=== PATIENT | female | born 1965 | race Caucasian/White ===

== ENCOUNTER 2016-08-18 23:49 | Emergency (ER) | payer OTHER ==
--- NOTE | 2016-08-19 02:04 | ED CLINICAL REPORT ---
Clinical Report - Physicians/Mid Levels [facility] [address] [place] [address] 08/18/2016 23:48 Patient: RORY GARCÍA Time Seen: 00:08. Arrived- By private vehicle. Historian- patient. HISTORY OF PRESENT ILLNESS Chief Complaint: VOMITING. This started yesterday and is still present. No recent travel. She has had nausea, vomiting, diarrhea and moderate, crampy abdominal pain. No black stools, bloody stools, constipation, flank pain or history of possible bad food exposure. No known contact with a sick individual or change in routine. Has not recently been camping or on antibiotics. The illness is described as moderate. Similar symptoms previously: Occasionally. Recent medical care: Not recently seen/assessed. REVIEW OF SYSTEMS No fever, muscle aches, difficulty with urination, dark urine or headache. No dizziness, sore throat, cough, chest pain or difficulty breathing. No excessive urination, skin rash, jaundice, back pain or fainting episodes. No blurred vision. All systems otherwise negative, except as recorded above. PAST HISTORY Problems: Depression. Additional Surgeries: Appendectomy. Hernia Repair. Knee Surgery. Wrist surgery . Medications: Citalopram Hydrobromide Oral. Allergies: Amoxicillin. Latex. Sulfa Antibiotics. Vicodin. SOCIAL HISTORY Never smoker. Alcohol use. History of drug use: marijuana. ADDITIONAL NOTES The nursing notes have been reviewed. PHYSICAL EXAM Vital Signs: 08/18/2016 23:53 BP: 160/86. HR: 62. RR: 18. O2 saturation: 98%. Temp: 98.2 F. Pain level now: 0/10. Appearance: Alert. Oriented X3. (Patient appears moderately uncomfortable.). Eyes: Pupils equal, round and reactive to light. Eyes normal inspection. ENT: Nose normal. Neck: Normal inspection. CVS: Normal heart rate and rhythm. Heart sounds normal. Pulses normal. Respiratory: No respiratory distress. Breath sounds normal. Abdomen: Soft. Mild tenderness diffusely. No guarding or rebound tenderness. Back: Normal inspection. No CVA tenderness. Skin: Skin warm and dry. Normal skin color. No rash. Normal skin turgor. Extremities: Extremities exhibit normal ROM. No lower extremity edema. Neuro: No motor deficit. No sensory deficit. (patient is grossly oriented.). LABS, X-RAYS, AND EKG Laboratory Tests: UA-Culture if indicated: (OMI: 08/19/2016 00:00) ( [facility] 08/19/2016 01:36) Final results Test Result Flag Units (Reference) URINE COLOR MANDIE URINE APPEARANCE CLEAR URINE GLUCOSE NEGATIVE (NEGATIVE) URINE BILIRUBIN ICTOTEST NEGATIVE (NEGATIVE) URINE KETONE 2+ (NEGATIVE) URINE SPECIFIC GRAVITY >= 1.030 (1.010-1.030) URINE PH 6.0 (5.0-8.0) URINE PROTEIN 2+ (NEGATIVE) URINE UROBILINOGEN 0.2 EU/dL (0.2-1.0) URINE NITRITE NEGATIVE (NEGATIVE) URINE BLOOD 1+ (NEGATIVE) URINE LEUK ESTERASE NEGATIVE (NEGATIVE) URINE RBC 0-1 rbc/hpf (0-1) URINE WBC 0-1 wbc/hpf (0-1) URINE EPITHELIAL CELLS 3-5 EPI/hpf (0-5) URINE BACTERIA MODERATE (2+ TO 3+) (NONE SEEN) URINE COMMENT CULTURE INDICATED FEW YEAST. 0-1 HYALINE CAST. 2+ MUCOUS.URINE CULTURES ARE SET-UP BASED ON THE FOLLOWING CRITERIA:POSITIVE NITRITEPOSITIVE LEUKOCYTE ESTERASEGREATER THAN 10 WHITE BLOOD CELLSMODERATE (2+) OR GREATER BACTERIA CBC w Diff: (OMI: 08/19/2016 00:02) ( [facility] 08/19/2016 00:59) Final results Test Result Flag Units (Reference) WHITE BLOOD COUNT 17.1 H K/uL (4.5-11.5) RED BLOOD COUNT 5.05 M/uL (4.00-5.20) HEMOGLOBIN 15.9 gm/dL (12.0-16.0) HEMATOCRIT 47.2 H % (36.0-46.0) MEAN CELL VOLUME 94 fL (80-100) MEAN CORPUSCULAR HGB 32 pg (26-34) MEAN CORPUSCULAR HGB CONC 34 g/dL (31-37) RED CELL DISTRIBUTION WIDTH 12.7 % (11.6-14.8) PLATELET COUNT 302 K/uL (150-400) NEUTROPHIL % 90.9 H % (50-75) LYMPH % 4.3 L % (25-40) MONO % 4.7 % (3-14) EOSINOPHIL % 0.1 % (0-4) BASOPHIL % 0 % (0-2) CMP: (OMI: 08/19/2016 00:02) ( MsgRcvd 08/19/2016 01:10) Final results Test Result Flag Units (Reference) GLUCOSE 177 H mg/dL (70-110) BUN 14 mg/dL (7-18) CREATININE 1.0 mg/dL (0.6-1.3) Estimated GFR >60 mL/min Estimated GFR- >60 mL/min Note: Persistent reduction over 3 months in eGFR<60 mL/min/1.73 m2 defines CKD. Patients with eGFR values>=60 mL/min/1.73 m2 may also have CKD if evidence ofpersistent proteinuria. Additional information may be foundat [email or web address].org. SODIUM 140 mmol/L (136-145) POTASSIUM 2.7 *L mmol/L (3.5-5.1) CRITICAL RESULTS CALLEDCalled to POWER JAMES RN 08/19/16 0108Were 2 patient identifiers used? YWas the result read back? Y CHLORIDE 98 mmol/L (98-107) CARBON DIOXIDE 29 mmol/L (21-32) CALCIUM 9.9 mg/dL (8.5-10.1) TOTAL PROTEIN 8.3 H g/dL (6.4-8.2) ALBUMIN 4.4 g/dL (3.3-5.0) BILIRUBIN, TOTAL 1.3 H mg/dL (0.0-1.0) ALKALINE PHOSPHATASE 115 U/L (46-116) AST (SGOT) 26 U/L (15-37) ALT (SGPT) 32 U/L (12-78) MAGNESIUM 1.9 mg/dL (1.8-2.4) LIPASE 173 U/L (73-393) . Pulse Oximetry: 08/18/2016 23:53 O2 saturation: 98%. (FIO2 - room air). Interpretation: normal. PROGRESS AND PROCEDURES Course of Care: patient is treated symptomatically with IV fluids and Zofran, after which she was found to be feeling better. She was worked up with urinalysis and labs, which were largely unremarkable, except for hypokalemia. Patient was given supplemental potassium in the emergency department. No emergent condition was identified. Patient counseled in person regarding the patient's stable condition, test results, diagnosis and need for follow-up. Concerns were addressed. Old medical records reviewed. Disposition: Discharged. Condition: stable and improved. CLINICAL IMPRESSION Acute viral gastroenteritis with volume depletion and hypokalemia. Hypokalemia INSTRUCTIONS Drink plenty of fluids. (Your tests all look good, other than your potassium being low.). Warnings: SEDATIVE MEDICATION: You were given sedative medication during your visit. Do not drive or operate dangerous machinery for 6 hours. GENERAL WARNINGS: Return or contact your physician immediately if your condition worsens or changes unexpectedly, if not improving as expected, or if other problems arise. Your Current Medications: CONTINUE TAKING THE FOLLOWING MEDICATIONS: Citalopram Hydrobromide Oral. Prescription Medications: Zofran (orally disintegrating tablets) 4 mg: take 1-2 orally every 6 hours as needed for nausea. Dispense twenty (20). No refill. Substitution is permissible. K-Dur 10 mEq: take 1 orally every 12 hours. Dispense fifteen (15). No refills. Substitution is permissible. Follow-up: Follow up with your doctor in five days if not better. Understanding of the discharge instructions verbalized by patient and family. (Electronically signed by Michelle Hunt MD 08/27/2016 10:31)
--- NOTE | 2016-08-19 02:04 | ED NURSING NOTES ---
Clinical Report - Nurses [facility] [address] [place] [address] 08/18/2016 23:48 Patient: RORY GARCÍA TRIAGE Triage time 23:53. Acuity: LEVEL 3. Chief Complaint: ABDOMINAL PAIN, NAUSEA, VOMITING and DIARRHEA. --23:58 TonyaB, R.N. 23:53 08/18/16. BP: 160/86. HR: 62. RR: 18. O2 saturation: 98%. Temp: 98.2 F. Pain level now: 0/10. --23:58 TonyaB, R.N. Weight: 58.9 kg. Height/Length: 63 inches. BMI: 23. --23:57 TonyaB, R.N. Medications Citalopram Hydrobromide Oral. --23:55 MagoB, R.N. Allergies Amoxicillin. Latex. Sulfa Antibiotics. Vicodin. --23:55 Kwasi, R.N. History Arrived by private vehicle. Historian: patient. Accompanied by family. ( pt complains of weakness with NVD). This started yesterday. She has had nausea, vomiting and diarrhea. Treatment [employer] WORKER: None. PAST MEDICAL HX: Immunizations: up-to-date. The patient is post-menopausal. SOCIAL HX: Never smoker. Occasional alcohol use. History of drug use: marijuana. Recently used drugs days ago. No recent travel. No infectious disease exposure. No known contact with a sick individual. SELF HARM ASSESSMENT: A self harm assessment was performed. The patient answered "no" to the question "Have you recently felt down, depressed, or hopeless?", "Have you noticed less interest or pleasure in doing things?", "Do you have thoughts of harming or killing yourself?", "Are you here because you tried to hurt yourself?", "Have you ever tried to hurt yourself before today?", "Have you recently had thoughts about harming or killing others?" and "Do you have any dangerous items in your possession?". FALL RISK ASSESSMENT: Fall risk assessment completed. No fall risk identified. NUTRITIONAL RISK ASSESSMENT: The nutritional risk assessment revealed no deficiencies. FUNCTIONAL ASSESSMENT: Functional assessment: no impairments noted. LEARNING NEEDS ASSESSMENT: The learning needs assessment revealed no barriers. ABUSE ASSESSMENT: Abuse assessment: The patient was asked "Do you feel safe in your home?". SKIN INTEGRITY ASSESSMENT: Skin integrity risk assessment completed. No skin integrity risk identified. --23:58 Kwasi R.N. PROBLEMS: Tendon Laceration. Laceration. --23:55 Kwasi R.N. Depression. --23:55 Kwasi, R.N. ADDITIONAL SURGERIES: Appendectomy. Hernia Repair. Knee Surgery. Wrist surgery . --23:55 Kwasi R.N. Interventions ID band on patient. To treatment room. --23:58 Kwasi R.N. PHYSICAL ASSESSMENT Ambulatory to room. GENERAL / NEURO / PSYCH: Alert. Oriented X 4. Appears in no acute distress. HEENT: Mucous membranes are pink. RESPIRATORY: Respirations not labored. Breath sounds within normal limits. CVS: Normal sinus rhythm noted. Capillary refill less than 2 seconds. GI / : The patient has had nausea. Emesis noted. Abdomen soft and nontender. Bowel sounds within normal limits. Stool color normal. SKIN: Skin is warm and dry. --23:59 Kwasi R.N. NURSING PROGRESS NOTES Patient gowned. Patient identifiers checked. Call light placed in reach. Side rails up x 1. Bed placed in lowest position. Brakes of bed on. --23:59 Kwasi R.N. 00:09 08/19/2016 Site #1 started via IV in the left antecubital space with an 20g angiocath; one attempt. Blood drawn: rainbow set. Labeled in the presence of the patient and sent to the lab. Saline lock flushed with 10 mL saline. --00:09 Kwasi R.N. 01:02 08/19/2016 Started bag #1 1000 mL IV Fluids IV NS (Saline); at 1000 mL/hr over 1 hour(s) via site #1 via dial-a-flow. Allergies verified and confirmed 5 rights. IV patency established. IV site checked: no pain, redness, or swelling. IV flushed thoroughly pre- and post-medication administration. --01:02 Tenzin Villalpando 01:03 08/19/2016 Zofran (Ondansetron HCl) IVP 8 mg given over 2 minute(s) via site #1. Allergies verified and confirmed 5 rights. IV patency established. IV site checked: no pain, redness, or swelling. IV flushed thoroughly pre- and post-medication administration. IVP given by RN. --01:03 Tenzin Villalpando Critical value relayed to ED by lab. Critical value received by mago. K: 2.7. Critical value read back. Verified lab result and patient ID. ED physician notifed of critical value. --01:10 Tenzin Villalpando 01:08/19/2016 Started 20 meq of KCL (Potassium Chloride) IVPB in bag #1 100 mL; at 50 mL/hr over 2 hour(s) via site #1 via IV pump. Allergies verified and confirmed 5 rights. IV patency established. IV site checked: no pain, redness, or swelling. IV flushed thoroughly pre- and post-medication administration. --01:20 Tenzin Villalpando 02:08/19/2016 IV Fluids IV NS Discontinued: bag #1 completed upon discharge. Total amount infused: 1000 mL. IV patency established. IV site checked: no pain, redness, or swelling. IV flushed thoroughly. --02:05 Tenzin Villalpando 02:06 08/19/2016 KCL IVPB Discontinued: discontinued upon discharge. Total amount infused: 50 mL. IV patency established. IV site checked: no pain, redness, or swelling. IV flushed thoroughly. --02:06 Tenzin Villalpando DISPOSITION / DISCHARGE 02:13 08/19/2016 Site #1 removed upon discharge. Catheter intact. Bandage applied. --02:13 Tenzin Villalpando Departure time: 02:13. Condition at departure: improved. No learning barriers present. Discharge instructions provided and reviewed with the patient. Reviewed medication(s) side effects, precautions, dosing and course information. Prescription(s) given to the patient. Patient verbalized understanding. Written instructions provided in Icelandic. No warning instructions, treatment instructions, referrals given to the patient, diet instructions or activity restrictions. No note given, follow up contact number given or stop smoking instructions. The patient was discharged by the physician. She was discharged home and accompanied by spouse. She left the Emergency Department ambulatory and via private vehicle. Spouse driving. FALL RISK ASSESSMENT: Fall risk assessment completed. No fall risk identified. --02:15 Tenzin Villalpando 02:12 08/19/16. BP: 138/72. HR: 62. RR: 16. O2 saturation: 98%. Temp: 98.8 F. Pain level now: 0/10. --02:15 Tenzin Villalpando Locked/Released at 08/19/2016 2:16 by Tenzin Villalpando
--- NOTE | 2016-08-19 02:05 | ED ORDER SUMMARY ---
..... Patient: RORY GARCÍA OrderSheet [facility] VisitID: [id number] [place] [address] 50y, F Registration Date/Time: 08/18/2016 ORDER SHEET Weight: 58.9 kg Allergies: Amoxicillin, Latex, Sulfa Antibiotics, Vicodin GENERAL ORDERS: CBC w Diff Urgent (00:51 08/19/2016 Rubi RIVAS) (Ack 0:52 AMcQuoid ER Tech1) (0:52 AMcQuoid ER Tech1) CMP Urgent (00:08/19/2016 Rubi RIVAS) (Ack 0:52 AMcQuoid ER Tech1) (0:52 AMcQuoid ER Tech1) Lipase Urgent (00:08/19/2016 Rubi RIVAS) (Ack 0:52 AMcQuoid ER Tech1) (0:52 AMcQuoid ER Tech1) UA-Culture if indicated Urgent (01:08/19/2016 Rubi RIVAS) (1:19 AMcQuoid ER Tech1) MEDICATION ORDERS: IV FLUIDS: IV NS : initial bolus 1000 mL (1000 mL/hr), then none - (NOW) (00:08/19/2016 Rubi RIVAS) (1:02 TBowen R.N.) Zofran IV 8 mg (NOW) (00:08/19/2016 Rubi RIVAS) (1:03 TBowen R.N.) KCl IV 10 mEq (Run no faster than 10 units/hr, HIGH ALERT MEDICATION, NOW) (01:08/19/2016 Rubi RIVAS) (Cancelled: Other1:13 Rubi RIVAS) KCl IV 20 meq/100mL (HIGH ALERT MEDICATION, NOW) (01:08/19/2016 Rubi RIVAS) (1:20 TBowen R.N.) ORDER SHEET NOTES: [Electronically signed by Mago Melgoza R.N. (02:08/19/2016)] [Electronically signed by Michelle Hunt MD (10:31 08/27/2016)] [Electronically locked/signed by Mago Melgoza R.N. (02:08/19/2016)]
--- NOTE | 2016-08-19 02:05 | ED ORDER SUMMARY ---
..... Patient: RORY GARCÍA OrderSheet [facility] VisitID: [id number] [place] [address] 50y, F Registration Date/Time: 08/18/2016 ORDER SHEET Weight: 58.9 kg Allergies: Amoxicillin, Latex, Sulfa Antibiotics, Vicodin GENERAL ORDERS: CBC w Diff Urgent (00:51 08/19/2016 Rubi RIVAS) (Ack 0:52 AMcQuoid ER Tech1) (0:52 AMcQuoid ER Tech1) CMP Urgent (00:08/19/2016 Rubi RIVAS) (Ack 0:52 AMcQuoid ER Tech1) (0:52 AMcQuoid ER Tech1) Lipase Urgent (00:08/19/2016 Rubi RIVAS) (Ack 0:52 AMcQuoid ER Tech1) (0:52 AMcQuoid ER Tech1) UA-Culture if indicated Urgent (01:08/19/2016 Rubi RIVAS) (1:19 AMcQuoid ER Tech1) MEDICATION ORDERS: IV FLUIDS: IV NS : initial bolus 1000 mL (1000 mL/hr), then none - (NOW) (00:08/19/2016 Rubi RIVAS) (1:02 TBowen R.N.) Zofran IV 8 mg (NOW) (00:08/19/2016 Rubi RIVAS) (1:03 TBowen R.N.) KCl IV 10 mEq (Run no faster than 10 units/hr, HIGH ALERT MEDICATION, NOW) (01:08/19/2016 Rubi RIVAS) (Cancelled: Other1:13 Rubi RIVAS) KCl IV 20 meq/100mL (HIGH ALERT MEDICATION, NOW) (01:08/19/2016 Rubi RIVAS) (1:20 TBowen R.N.) ORDER SHEET NOTES: [Electronically signed by Mago Melgoza R.N. (02:08/19/2016)] [Electronically signed by Michelle Hunt MD (10:31 08/27/2016)] [Electronically locked/signed by Mago Melgoza R.N. (02:08/19/2016)]
--- NOTE | 2016-08-27 10:32 | ED MED RECONCILIATION SUMMARY ---
Patient: RORY GARCÍA Medication Reconciliation Report [facility] VisitID: [id number] [address] [place] [address] 50y, F Registration Date/Time: 08/18/2016 Weight: 58.9 kg Height/Length: 63 in. BMI: 23.0 ALLERGIES: Amoxicillin, Latex, Sulfa Antibiotics, Vicodin The patient's Home Medications are listed below: CONTINUE TAKING THE FOLLOWING MEDICATIONS: Citalopram Hydrobromide Oral The source(s) of the original Home Medication information: Not obtained. The following Medications were given to the patient in the Emergency Department: IV NS IV Fluids bolus 0, then 1000 mL/hr, administered: 08/19/2016 1:02:00 AM Zofran [IVP] IVP 8 mg, administered: 08/19/2016 1:03:00 AM KCL [IVPB] IVPB bolus 0, then 20 meq 50 mL/hr, administered: 08/19/2016 1:05:00 AM The following Medications were prescribed to the patient: Zofran (orally disintegrating tablets) 4 mg: take 1-2 orally every 6 hours as needed for nausea. Dispense twenty (20). No refill. Substitution is permissible. -- Michelle Hunt MD K-Dur 10 mEq: take 1 orally every 12 hours. Dispense fifteen (15). No refills. Substitution is permissible. -- Michelle Hunt MD
--- NOTE | 2016-08-27 10:32 | ED MAR SUMMARY ---
..... Medication Administration Record [facility] [address] [place] [address] Patient: RORY GARCÍA Visit ID: [id number] 50y, F Weight: 58.9 kg Height/Length: 63 in BMI: 23 ALLERGIES: Amoxicillin, Latex, Sulfa Antibiotics, Vicodin Start 01:02 08/19/2016 Kwasi RAlec., Stop 02:08/19/2016 Aldo VillalpandoN. Medication Administered: IV NS (SALINE), Dose: IV Fluids over 1 hour(s), Rate: 1000 mL/hr, Dispensed: 1000 mL bag, Site: #1 left AC. Medication Ordered: IV NS : initial bolus 1000 mL (1000 mL/hr), then none - (NOW). Given 01:03 08/19/2016 Lul Villalpando. Medication Administered: ZOFRAN [IVP] (ONDANSETRON HCL), Dose: 8 mg IVP over 2 minute(s), Site: #1 left AC. Medication Ordered: Zofran IV 8 mg (NOW). Start 01:05 08/19/2016 Kwasi RDeenaN., Stop 02:06 08/19/2016 Aldo VillalpandoN. Medication Administered: KCL [IVPB] (POTASSIUM CHLORIDE), Dose: 20 meq IVPB over 2 hour(s), Rate: 50 mL/hr, Dispensed: 100 mL bag, Site: #1 left AC. Medication Ordered: KCl IV 20 meq/100mL (HIGH ALERT MEDICATION, NOW).
--- NOTE | 2016-08-27 10:32 | ED MAR SUMMARY ---
..... Medication Administration Record [facility] [address] [place] [address] Patient: RORY GARCÍA Visit ID: [id number] 50y, F Weight: 58.9 kg Height/Length: 63 in BMI: 23 ALLERGIES: Amoxicillin, Latex, Sulfa Antibiotics, Vicodin Start 01:02 08/19/2016 Kwasi RAlec., Stop 02:08/19/2016 Aldo VillalpandoN. Medication Administered: IV NS (SALINE), Dose: IV Fluids over 1 hour(s), Rate: 1000 mL/hr, Dispensed: 1000 mL bag, Site: #1 left AC. Medication Ordered: IV NS : initial bolus 1000 mL (1000 mL/hr), then none - (NOW). Given 01:03 08/19/2016 Lul Villalpando. Medication Administered: ZOFRAN [IVP] (ONDANSETRON HCL), Dose: 8 mg IVP over 2 minute(s), Site: #1 left AC. Medication Ordered: Zofran IV 8 mg (NOW). Start 01:05 08/19/2016 Kwasi RDeenaN., Stop 02:06 08/19/2016 Aldo VillalpandoN. Medication Administered: KCL [IVPB] (POTASSIUM CHLORIDE), Dose: 20 meq IVPB over 2 hour(s), Rate: 50 mL/hr, Dispensed: 100 mL bag, Site: #1 left AC. Medication Ordered: KCl IV 20 meq/100mL (HIGH ALERT MEDICATION, NOW).
--- NOTE | 2016-08-27 10:32 | ED MED RECONCILIATION SUMMARY ---
Patient: RORY GARCÍA Medication Reconciliation Report [facility] VisitID: [id number] [address] [place] [address] 50y, F Registration Date/Time: 08/18/2016 Weight: 58.9 kg Height/Length: 63 in. BMI: 23.0 ALLERGIES: Amoxicillin, Latex, Sulfa Antibiotics, Vicodin The patient's Home Medications are listed below: CONTINUE TAKING THE FOLLOWING MEDICATIONS: Citalopram Hydrobromide Oral The source(s) of the original Home Medication information: Not obtained. The following Medications were given to the patient in the Emergency Department: IV NS IV Fluids bolus 0, then 1000 mL/hr, administered: 08/19/2016 1:02:00 AM Zofran [IVP] IVP 8 mg, administered: 08/19/2016 1:03:00 AM KCL [IVPB] IVPB bolus 0, then 20 meq 50 mL/hr, administered: 08/19/2016 1:05:00 AM The following Medications were prescribed to the patient: Zofran (orally disintegrating tablets) 4 mg: take 1-2 orally every 6 hours as needed for nausea. Dispense twenty (20). No refill. Substitution is permissible. -- Michelle Hunt MD K-Dur 10 mEq: take 1 orally every 12 hours. Dispense fifteen (15). No refills. Substitution is permissible. -- Michelle Hunt MD
--- NOTE | 2016-08-27 10:32 | ED DISCHARGE INSTRUCTIONS ---
Patient: RORY GARCÍA General Instructions [facility] VisitID: [id number] [place] [address] 50y, F Registration Date/Time: 08/18/2016 Acute viral gastroenteritis with volume depletion and hypokalemia. Hypokalemia INSTRUCTIONS Drink plenty of fluids. (Your tests all look good, other than your potassium being low.). Warnings: SEDATIVE MEDICATION: You were given sedative medication during your visit. Do not drive or operate dangerous machinery for 6 hours. GENERAL WARNINGS: Return or contact your physician immediately if your condition worsens or changes unexpectedly, if not improving as expected, or if other problems arise. Your Current Medications: CONTINUE TAKING THE FOLLOWING MEDICATIONS: Citalopram Hydrobromide Oral. Prescription Medications: Zofran (orally disintegrating tablets) 4 mg: take 1-2 orally every 6 hours as needed for nausea. Dispense twenty (20). No refill. Substitution is permissible. K-Dur 10 mEq: take 1 orally every 12 hours. Dispense fifteen (15). No refills. Substitution is permissible. Follow-up: Follow up with your doctor in five days if not better. Understanding of the discharge instructions verbalized by patient and family. ADDITIONAL INFORMATION Viral Gastroenteritis (6Yr-Adult) Gastroenteritis is another name for thestomach flu.It is most often caused by a virus that affects the stomach and intestinal tract. Symptoms include stomach cramping and fever, vomiting and/or diarrhea, and can last from 2 to 7 days. The danger from repeated vomiting or diarrhea is dehydration. This is the loss of too much water and minerals from the body. When this occurs, body fluids must be replaced. Antibiotics are not effective for this illness, but simple home treatment will be helpful. Home Care If symptoms are severe, rest at home for the next 24 hours. Avoid tobacco, caffeine, and alcohol use, which can worsen symptoms. Acetaminophen (Tylenol) or ibuprofen (Motrin, Advil) may be usedfor fever or pain unless another medication was prescribed. NOTE: If you have chronic liver or kidney disease or ever had a stomach ulcer or GI bleeding, talk with your doctor before using these medicines. Aspirin should never be used in anyone under 18 years of age who is ill with a fever. It may cause severe liver damage. If medicines for diarrhea or vomiting were prescribed, be sure they are takenonly as directed. If vomiting, drink small amounts of clear fluids (such as water, sports drinks, clear sodas) at frequent intervals to prevent dehydration. Start with 1 to 2 tablespoons every 10 minutes. Once vomiting stops, follow these guidelines: During The First 12 To 24 Hours follow the diet below: Beverages: Sport drinks like Gatorade, soft drinks without caffeine; nai layton, mineral water (plain or flavored), decaffeinated tea and coffee. Soups: Clear broth, consomm and bouillon Desserts: Plain gelatin (Jell-O), Popsicles and fruit juice bars. During The Next 24 Hours you may add the following to the above: Hot cereal, plain toast, bread, rolls, crackers Plain noodles, rice, mashed potatoes, chicken noodle or rice soup Unsweetened canned fruit (avoid pineapple), bananas Limit fat intake to less than 15 grams per day by avoiding margarine, butter, oils, mayonnaise, sauces, gravies, fried foods, peanut butter, meat, poultry, and fish. Limit fiber; avoid raw or cooked vegetables, fresh fruits (except bananas), and bran cereals. Limit caffeine and chocolate. Do not use spices or seasonings except salt. During The Next 24 Hours The patient can gradually resume a normal diet as symptoms lessen. Preventing Spread Hand washing with soap and water is the best way to prevent the spread of viruses. Caregivers should wash their hands before andafter touching the sick person. The sick person, as well as everyone in the family,should wash their hands after using the toilet and before meals. Clean the toilet after each use. People with diarrhea should not prepare food for others. If you are preparing your own foods, wash your hands before and after. Follow Up with your doctor as advised. Call your doctor if you are not improving over the next 2 to 3 days. If a stool (diarrhea) sample was taken, you may call in 2 days (or as directed) for the results. Get Prompt Medical Attention if any of the following occur: Increasing abdominal pain Continued vomiting (unable to keep liquids down) Frequent diarrhea (more than 5 times a day) Blood in vomit or stool (black or red color) Dark urine, reduced urine output, or extreme thirst Weakness, dizziness, fainting Drowsiness, confusion, stiff neck, or seizure Fever of 100.4F (38C) oral or higher, not better with fever medication New rash Hypokalemia Hypokalemia means a low level of potassium in the blood. This most often occurs in patients who take diuretics (water pills). It can also occur due to severe vomiting or diarrhea. A mild case usually causes no symptoms. It is only found with blood testing. More severe potassium loss causes generalized weakness, muscle or abdominal cramping, heart palpitations (rapid or irregular heartbeats) and low blood pressure. Home Care: 1) Take any potassium supplements prescribed. 2) Eat foods rich in potassium. The highest amount is found in artichoke, baked potatoes, spinach, cantaloupe, honeydew melon, cod, halibut, salmon, and scallops. White, red, or selby beans are also very good sources. A modest amount is found in orange juice, bananas, carrots, and tomato juice. 3) Certain types of diuretics (water pills), such as Lasix (furosemide), require that you take potassium supplements for as long as you take the diuretic pills. If you are taking a diuretic, discuss the need for potassium supplements with your doctor. Follow Up with your doctor for a repeat blood test within the next week or as advised by our staff. Get Prompt Medical Attention if any of the following occur: -- Increased weakness -- Feeling dizzy -- Irregular heartbeat, extra beats or very fast heart rate -- Fainting spell You have been given the following additional information: Gastroenteritis, Viral (6Y-Adult) Hypokalemia (Electronically signed by Michelle Hunt MD 08/27/2016 10:31)
== END 2016-08-19 02:13 | disposition home or self-care (01) ==
LOC: ED SRH 23:49
DX: A08.4 Viral intestinal infection, unspecified (principal); E87.6 Hypokalemia; E86.9 Volume depletion, unspecified; F12.10 Cannabis abuse, uncomplicated; Z88.2 Allergy status to sulfonamides; Z88.1 Allergy status to other antibiotic agents
CPT/HCPCS: 90004; 90100; 90469; 92235; 92720; 95059

== ENCOUNTER 2016-08-19 18:08 | Emergency (ER) | payer OTHER ==
--- NOTE | 2016-08-19 20:14 | DIAGNOSTIC IMAGING REPORT ---
PROCEDURE: CT ABD/PELVIS WITH CONTRAST CLINICAL INDICATION: Abdominal pain with nausea and vomiting x3 days. TECHNIQUE: 125 ml of Isovue 300 were injected intravenously and axial images were obtained of the entire abdomen and pelvis with sagittal and coronal reformations. COMPARISON: None. FINDINGS: ABDOMEN: Lung bases are clear. Normal heart size. Liver, gallbladder, pancreas, spleen, adrenal glands and kidneys are normal. Minor atherosclerosis of the aorta. Small hiatal hernia. Nonspecific bowel gas pattern. PELVIS: History of appendectomy. Mild sigmoid diverticulosis. Uterus, adnexa and bladder are normal. No pelvic mass, inflammatory changes or free fluid. Mild degenerative changes of the spine. IMPRESSION: 1. Small hiatal hernia 2. Mild sigmoid diverticulosis 3. Appendectomy 4. Results discussed with WILLY Garcia All CT scans at this facility use dose modulation, iterative reconstruction, and/or weight-based dosing when appropriate to reduce radiation dose to as low as reasonably achievable.
--- NOTE | 2016-08-19 22:42 | ED CLINICAL REPORT ---
Clinical Report - Physicians/Mid Levels [facility] [address] [place] [address] 08/19/2016 18:11 Patient: RORY GARCÍA Time Seen: 18:35 Aug 19 2016. Arrived- By private vehicle. Historian- patient. HISTORY OF PRESENT ILLNESS Chief Complaint: ABDOMINAL PAIN. This started 3 days [employer] and is still present. It is described as "pain" and it is described as located in the upper abdomen. The patient has had loss of appetite, vomiting and diarrhea. (Patient reports abdominal pain nausea vomiting and diarrhea over the last 3 days. Reports epigastric pain. Patient reports taking small sips unable to tolerate such, however pain epigastrically when she does. Patient was seen in the emergency department yesterday, went home and had improvement of symptoms, this morning had nausea, and then started worsening with nausea and vomiting epigastric pain. Able tolerate some by mouth small sips. She denies any melena. Denies hematochezia. Denies fevers. Denies shortness of breath or cough.). REVIEW OF SYSTEMS No constipation, black stools, difficulty with urination, urinary frequency or fever. No headache or sore throat. All systems otherwise negative, except as recorded above. PAST HISTORY Problems: Hiatal Hernia. Gastroenteritis. Depression. Tendon Laceration. Laceration. Additional Surgeries: Appendectomy. Hernia Repair. Knee Surgery. Wrist surgery . Medications: Potassium Oral. Zofran Oral. Citalopram Hydrobromide Oral. Allergies: Amoxicillin. Latex. Sulfa Antibiotics. Vicodin. SOCIAL HISTORY Never smoker. Alcohol use. History of drug use. ADDITIONAL NOTES The nursing notes have been reviewed. PHYSICAL EXAM Vital Signs: 08/19/2016 19:59 BP: 170/79. HR: 62. RR: 19. O2 saturation: 95%. Pain level now: 07/05. 08/19/2016 19:34 BP: 175/75. HR: 55. RR: 20. O2 saturation: 99%. Pain level now: 07/05. 08/19/2016 19:00 HR: 55. RR: 21. O2 saturation: 97%. 08/19/2016 18:27 BP: 124/67. HR: 56. RR: 22. O2 saturation: 98%. Temp: 98 F. Pain level now: 12/05. Appearance: Anxious. Appears to be in pain. Patient in mild distress. Eyes: Eyes normal inspection. ENT: Ears normal. Nose normal. Neck: Normal inspection. No lymphadenopathy or thyromegaly. CVS: Normal heart rate and rhythm. Heart sounds normal. Respiratory: No respiratory distress. Breath sounds normal. No decreased air movement. Abdomen: Soft. Mild tenderness in the epigastric area. Back: Normal inspection. No CVA tenderness. Skin: Skin warm. Normal skin color. Neuro: Oriented X 3. LABS, X-RAYS, AND EKG EKG: EKG time: (1846). No acute process. No acute ischemia. Rate: 63. Prolonged QT. The study has been interpreted contemporaneously. The study has been independently viewed by me. The EKG appears to be a good tracing. I agree with and confirm the computer reading of the EKG. Abdominal CT: IMPRESSION: 1. Small hiatal hernia 2. Mild sigmoid diverticulosis 3. Appendectomy 4. Results discussed with Helga Forbes, WILLY All CT scans at this facility use dose modulation, iterative reconstruction, and/or weight-based dosing when appropriate to reduce radiation dose to as low as reasonably achievable. Electronically Final signed by:Harry Fuchs MD 08/19/2016 8:14:06 PM. Laboratory Tests: UA-Culture if indicated: (OMI: 08/19/2016 18:25) ( MsgRcvd 08/19/2016 18:53) Final results Test Result Flag Units (Reference) URINE COLOR YELLOW URINE APPEARANCE CLEAR URINE GLUCOSE NEGATIVE (NEGATIVE) URINE BILIRUBIN NEGATIVE (NEGATIVE) URINE KETONE 3+ (NEGATIVE) URINE SPECIFIC GRAVITY 1.025 (1.010-1.030) URINE PH 6.0 (5.0-8.0) URINE PROTEIN 1+ (NEGATIVE) URINE UROBILINOGEN 1.0 EU/dL (0.2-1.0) URINE NITRITE NEGATIVE (NEGATIVE) URINE BLOOD TRACE-INTACT (NEGATIVE) URINE LEUK ESTERASE NEGATIVE (NEGATIVE) URINE RBC 0-1 rbc/hpf (0-1) URINE WBC 0-1 wbc/hpf (0-1) URINE EPITHELIAL CELLS 0-1 EPI/hpf (0-5) URINE BACTERIA TRACE (<1+) (NONE SEEN) 2+ MUCOUS URINE COMMENT CULT NOT INDICATED URINE CULTURES ARE SET-UP BASED ON THE FOLLOWING CRITERIA:POSITIVE NITRITEPOSITIVE LEUKOCYTE ESTERASEGREATER THAN 10 WHITE BLOOD CELLSMODERATE (2+) OR GREATER BACTERIA CBC w Diff: (OMI: 08/19/2016 18:35) ( [facility] 08/19/2016 18:43) Final results Test Result Flag Units (Reference) WHITE BLOOD COUNT 13.3 H K/uL (4.5-11.5) RED BLOOD COUNT 5.01 M/uL (4.00-5.20) HEMOGLOBIN 15.9 gm/dL (12.0-16.0) HEMATOCRIT 47.0 H % (36.0-46.0) MEAN CELL VOLUME 94 fL (80-100) MEAN CORPUSCULAR HGB 32 pg (26-34) MEAN CORPUSCULAR HGB CONC 34 g/dL (31-37) RED CELL DISTRIBUTION WIDTH 12.6 % (11.6-14.8) PLATELET COUNT 299 K/uL (150-400) NEUTROPHIL % 89.4 H % (50-75) LYMPH % 6.7 L % (25-40) MONO % 3.7 % (3-14) EOSINOPHIL % 0.2 % (0-4) BASOPHIL % 0 % (0-2) Troponin-I: (OMI: 08/19/2016 18:35) ( [facility] 08/19/2016 19:21) Final results Test Result Flag Units (Reference) TROPONIN I 0.06 ng/mL (0.00-1.5) TROPONIN REFERENCE RANGE:<0.1 NEGATIVE0.1-1.5 INDETERMINANT>1.5 POSITIVE CMP: (OMI: 08/19/2016 18:35) ( [facility] 08/19/2016 19:20) Final results Test Result Flag Units (Reference) GLUCOSE 144 H mg/dL (70-110) BUN 14 mg/dL (7-18) CREATININE 0.9 mg/dL (0.6-1.3) Estimated GFR >60 mL/min Estimated GFR- >60 mL/min Note: Persistent reduction over 3 months in eGFR<60 mL/min/1.73 m2 defines CKD. Patients with eGFR values>=60 mL/min/1.73 m2 may also have CKD if evidence ofpersistent proteinuria. Additional information may be foundat [email or web address].org. SODIUM 139 mmol/L (136-145) POTASSIUM 2.8 *L mmol/L (3.5-5.1) CRITICAL RESULTS CALLEDCalled to Rufina FELIX 08/19/169Were 2 patient identifiers used? YWas the result read back? Y CHLORIDE 99 mmol/L (98-107) CARBON DIOXIDE 23 mmol/L (21-32) CALCIUM 9.2 mg/dL (8.5-10.1) TOTAL PROTEIN 7.7 g/dL (6.4-8.2) ALBUMIN 4.0 g/dL (3.3-5.0) BILIRUBIN, TOTAL 1.8 H mg/dL (0.0-1.0) ALKALINE PHOSPHATASE 108 U/L (46-116) AST (SGOT) 21 U/L (15-37) ALT (SGPT) 31 U/L (12-78) MAGNESIUM 1.9 mg/dL (1.8-2.4) LIPASE 253 U/L (73-393) . PROGRESS AND PROCEDURES Course of Care: Patient with emesis diarrhea and abdominal pain, paresthesias over the last 3 days. Patient was recently seen in the emergency department yesterday. She still has hypokalemia, somewhat improved from yesterday although minimal, was given 20 mEq IV today. Patient received 2 L of fluid bolus in addition. Dehydration with likely viral gastroenteritis, comp became to by hypokalemia. Patient with a negative CT abdomen. No signs of acute surgical pathology. No signs of infectious process requiring antibiotic. 08/19/2016 22:48 BP: 173/75. HR: 72. RR: 14. O2 saturation: 96%. Pain level now: 07/05. 08/19/2016 22:25 BP: 151/91. HR: 68. RR: 13. O2 saturation: 96%. Pain level now: 07/05. 08/19/2016 22:09 BP: 178/92. HR: 64. RR: 16. O2 saturation: 96%. Pain level now: 07/05. 08/19/2016 21:15 BP: 174/79. HR: 60. RR: 19. O2 saturation: 88%. FLACC pain scale: 0/10. Patient is stable. Symptoms much better and better. Differential Diagnosis: I considered gastritis, acute appendicitis, diverticulitis, small bowel obstruction, adhesions, biliary colic, cholecystitis, hepatitis, pancreatitis, splenic injury, splenic rupture, intraabdominal abscess, urinary tract infection, cystitis, ovarian cyst, pelvic inflammatory disease, pelvic abscess, abdominal aortic aneurysm, myocardial infarction, pneumonia, diabetic ketoacidosis and medications as a possible cause of abdominal pain in this patient. This is a partial list of diagnoses considered. Differential diagnosis was discussed with patient and patient's spouse. Disposition: Discharged. CLINICAL IMPRESSION Vomiting. Diarrhea Acute abdominal pain of unknown cause. Hypertension. Hypokalemia Hiatal Hernia. INSTRUCTIONS Drink plenty of fluids. Drink plenty of fluids. (take your zofran as well as the Potassium). Warnings: Further evaluation is necessary. Prescription Medications: Phenergan take 1 as needed for nausea or vomiting. Dispense ten (10). No refill. Substitution is permissible Reglan 10 mg tablets: take 1 orally every 8 hours for 3 days as needed for nausea or vomiting. Dispense ten (10). No refills. Substitution is permissible. Follow-up: Follow up with your doctor in two days. (Electronically signed by May Forbes P.A.-C 08/19/2016 23:13)
--- NOTE | 2016-08-19 22:42 | ED ORDER SUMMARY ---
..... Patient: RORY GARCÍA OrderSheet [facility] VisitID: [id number] [place] [address] 50y, F Registration Date/Time: 08/19/2016 ORDER SHEET Weight: 61.2 kg (stated) Allergies: Amoxicillin, Latex, Sulfa Antibiotics, Vicodin GENERAL ORDERS: CBC w Diff Urgent (18:27 08/19/2016 EKoroleva P.A.-C) (Ack 18:29 KHoerner) (18:44 MCook R.N.) CMP Urgent (18:27 08/19/2016 EKoroleva P.A.-C) (Ack 18:29 KHoerner) (18:44 MCook R.N.) UA-Culture if indicated Urgent (18:27 08/19/2016 EKoroleva P.A.-C) (Ack 18:29 KHoerner) (18:44 MCook R.N.) Lipase Urgent (18:27 08/19/2016 EKoroleva P.A.-C) (Ack 18:29 KHoerner) (18:44 MCook R.N.) EKG - ER Stat (18:36 08/19/2016 EKoroleva P.A.-C) (18:44 MCook R.N.) Troponin-I Urgent (18:36 08/19/2016 EKoroleva P.A.-C) (Ack 18:38 KHoerner) (18:44 MCook R.N.) CT Abd/Pel w Cont (No) (see lab) Urgent (19:28 08/19/2016 EKoroleva P.A.-C) (Ack 19:31 AMcQuoid ER Tech1) (19:55 MCampbell) Vitals (20:43 08/19/2016 EKoroleva P.A.-C) (21:03 RMarsden R.N.) Vitals (R. arm bp) (22:17 08/19/2016 EKoroleva P.A.-C) (22:26 RMarsden R.N.) MEDICATION ORDERS: Phenergan IV 12.5 mg (HIGH ALERT MEDICATION, NOW) (18:40 08/19/2016 EKoroleva P.A.-C) (18:51 MCook R.N.) Phenergan IV 12.5 mg (HIGH ALERT MEDICATION) (20:56 08/19/2016 EKoroleva P.A.-C) (Ack 21:03 RMarsden R.N.) (21:16 RMarsden R.N.) IV FLUIDS: IV NS : initial bolus 1000 mL (1000 mL/hr), then 1000 mL/hr for X1 (NOW); Kieran (18:27 08/19/2016 EKoroleva P.A.-C) (18:45 MCook R.N.) Reglan IV 10 mg (NOW) (18:27 08/19/2016 EKoroleva P.A.-C) (18:45 MCook R.N.) Protonix IVP 40mg 40 mg (Mix in NS 10ml over 2min) (18:36 08/19/2016 EKoroleva P.A.-C) (18:48 MCook R.N.) KCl IV 20 meq/100mL (Run no faster than 10 units/hr) (19:01 08/19/2016 EKoroleva P.A.-C) (Ack 19:04 RMarsden R.N.) (19:15 MCook R.N.) IV NS with Normal Saline 1 Liter: initial bolus 150 mL (1000 mL/hr), then 150 mL/hr for X1 (NOW) (20:22 08/19/2016 RMarsden R.N. per protocol) (Ack 20:23 RMarsden R.N.) (Cancelled: Other20:24 RMarsden R.N.) Zofran IV 8 mg (NOW) (20:56 08/19/2016 EKoroleva P.A.-C) (Ack 21:03 RMarsden R.N.) (21:20 RMarsden R.N.) Reglan IV 10 mg (NOW) (22:28 08/19/2016 EKoroleva P.A.-C) (Ack 22:34 RMarsden R.N.) (22:38 RMarsden R.N.) ORDER SHEET NOTES: [Electronically signed by May Forbes P.A.-C (23:13 08/19/2016)] [Electronically signed by Caro Gonzalez R.N. (:15 08/20/2016)] [Electronically locked/signed by Caro Gonzalez R.N. (:15 08/20/2016)]
--- NOTE | 2016-08-19 22:42 | ED NURSING NOTES ---
Clinical Report - Nurses [facility] [address] [place] [address] 08/19/2016 18:11 Patient: RORY GARCÍA TRIAGE Triage time 18:Aug 19 2016. Acuity: LEVEL 3. Chief Complaint: ABDOMINAL PAIN, NAUSEA and VOMITING. Alert. SEPSIS SCREEN: Sepsis Screen. Negative (no infection suspected/documented). --18:38 Alex Berkowitz R.N. 18:27 08/19/16. BP: 124/67. HR: 56. RR: 22. O2 saturation: 98% on room air. Temp: 98 F. Pain level now: 12/05. --18:38 Alex Berkowitz R.N. Weight: 61.2 kg stated. Height/Length: 63 inches Per Patient. BMI: 23.9. --18:27 Alex Berkowitz R.N. Medications Citalopram Hydrobromide Oral. --18:28 Alex Berkowitz R.N. Zofran Oral. --18:29 Alex Berkowitz R.N. Potassium Oral. --18:29 Alex Berkowitz R.N. Allergies Amoxicillin. Latex. Sulfa Antibiotics. Vicodin. --18:28 Alex Berkowitz R.N. History Arrived by private vehicle. Historian: patient and family. Accompanied by family. Onset. (3 days ago). ( Pt was here in ED last night for nausea and vomiting for the past 3 days. She returns today for N/V and abdominal pain, reports she "feels ill" and just "wants to get out of my skin." C/O numbness in hands as well. Pt was given Zofran ODT last evening as an Rx but Pt never took it.). No fever. PAST MEDICAL HX: Immunizations: up-to-date. SOCIAL HX: Never smoker. Occasional alcohol use. History of occasional drug use: marijuana. No recent travel. No infectious disease exposure. No known contact with a sick individual. FALL RISK ASSESSMENT: Fall risk assessment completed. No fall risk identified. FUNCTIONAL ASSESSMENT: Functional assessment: no impairments noted. LEARNING NEEDS ASSESSMENT: The learning needs assessment revealed no barriers. NUTRITIONAL RISK ASSESSMENT: The patient has recently had decreased intake and recurrent vomiting several times. SKIN INTEGRITY ASSESSMENT: Skin integrity risk assessment completed. No skin integrity risk identified. --18:38 Alex Berkowitz R.N. PROBLEMS: Hypokalemia. Gastroenteritis. Depression. Tendon Laceration. Laceration. --18:29 Alex Berkowitz R.N. ADDITIONAL SURGERIES: Appendectomy. Hernia Repair. Knee Surgery. Wrist surgery . --18:29 Alex Berkowitz R.N. Assessment The patient states feels the same. --18:38 Alex Berkowitz R.N. Interventions ID band on patient. To treatment room. --18:38 Alex Berkowitz R.N. PHYSICAL ASSESSMENT Ambulatory to room. GENERAL / NEURO / PSYCH: Alert. Oriented X 4. Appears in distress. HEENT: Mucous membranes are pink. RESPIRATORY: Respirations not labored. CVS: Capillary refill less than 2 seconds. GI / : Abdominal tenderness (Pt reports generalized soreness). Diminished bowel sounds in all quadrants. SKIN: Skin is warm and dry. --18:56 Alex Berkowitz R.N. NURSING PROGRESS NOTES 18:40 08/19/2016 Site #1 started via IV in the right antecubital space with an 20g angiocath, with aseptic technique and good blood return; one attempt. Blood drawn. Labeled in the presence of the patient and sent to the lab. Saline lock flushed with 10 mL saline (placed by stephan CHAN). --18:45 Alex Berkowitz R.N. 18:45 08/19/2016 Started bag #1 1000 mL IV Fluids IV NS (Saline); bolus of 1000 mL wide open via site #1. Allergies verified and confirmed 5 rights. IV patency established. IV site checked: no pain, redness, or swelling. IV flushed thoroughly pre- and post-medication administration. Completed per protocol. --18:45 Alex Berkowitz R.N. 18:45 08/19/2016 Reglan (Metoclopramide HCl) IVP 10 mg given over 2 minute(s) via site #1. Allergies verified and confirmed 5 rights. IV patency established. IV site checked: no pain, redness, or swelling. IV flushed thoroughly pre- and post-medication administration. IVP given by RN. --18:45 Alex Berkowitz R.N. 18:48 08/19/2016 PROTONIX (Pantoprazole Sodium) IVP 40 mg given over 2 minute(s) via site #1. Allergies verified and confirmed 5 rights. IV patency established. IV site checked: no pain, redness, or swelling. IV flushed thoroughly pre- and post-medication administration. IVP given by RN. --18:48 Alex Berkowitz R.N. 18:51 08/19/2016 PHENERGAN (Promethazine HCl) IVP 12.5 mg given over 2 minute(s) via site #1. Allergies verified and confirmed 5 rights. IV patency established. IV site checked: no pain, redness, or swelling. IV flushed thoroughly pre- and post-medication administration. IVP given by RN. --18:51 Alex Berkowitz R.N. The plan of care for this patient has been created. Monitoring of patient in place. Patient gowned. Head of bed elevated. Reassurance given. Two patient identifiers checked. Call light placed in reach. Side rails up. Bed placed in lowest position. Patient ready for evaluation- PA notified. ( Pt resting in bed, medications given, PA already in to see Pt, S/O at bedside WCTM.). --18:57 Alex Berkowitz R.N. 18:47. EKG was performed by a tech. --19:00 McQuoid, Donna, ER Tech1 Care transferred and report given (to DUSTIN Elizondo at shift change). --19:03 Alex Berkowitz R.N. Care transferred and report received (from DUSTIN Johnson). --19:06 Caro Gonzalez R.N. 19:15 08/19/2016 Started 20 meq of KCL (Potassium Chloride) IVPB in bag #1 100 mL; at 50 mL/hr over 2 hour(s) via site #1; Allergies verified and confirmed 5 rights. IV patency established. IV site checked: no pain, redness, or swelling. IV flushed thoroughly pre- and post-medication administration. Completed per protocol. --19:15 Alex Berkowitz R.N. 19:38 08/19/16. Patient transported to CT by stretcher. Patient informed about reason for wait and about plan of care. --19:38 Caro Gonzalez R.N. 19:34 08/19/16. BP: 175/75 (regular adult cuff) taken on the left arm, while lying. HR: 55. RR: 20. O2 saturation: 99% on room air. Temp: deferred. Pain level now: 07/05. --19:38 Caro Gonzalez R.N. Patient returned from CT by stretcher with tech. (19:51 Aug 19 2016). --19:51 Debora John 19:35 08/19/2016 Reglan IVP Response: no adverse reaction symptoms have improved the patient feels better. 08/19/2016 19:34 BP: 175/75. HR: 55. RR: 20. O2 saturation: 99%. Pain level now: 07/05. --20:09 Caro Gonzalez R.N. 19:35 08/19/2016 PROTONIX IVP Response: no adverse reaction symptoms have improved the patient feels better. 08/19/2016 19:34 BP: 175/75. HR: 55. RR: 20. O2 saturation: 99%. Pain level now: 07/05. --20:10 Caro Gonzalez R.N. 19:35 08/19/2016 PHENERGAN IVP Response: no adverse reaction symptoms have improved the patient feels better. 08/19/2016 19:34 BP: 175/75. HR: 55. RR: 20. O2 saturation: 99%. Pain level now: 07/05. --20:10 Caro Gonzalez R.N. 19:35 08/19/2016 KCL IVPB Response: no adverse reaction. 08/19/2016 19:34 BP: 175/75. HR: 55. RR: 20. O2 saturation: 99%. Pain level now: 07/05. --20:11 Caro Gonzalez R.N. 19:58 08/19/16. Patient returned from CT by stretcher with tech. --19:58 Caro Gonzalez R.N. 19:59 08/19/16. BP: 170/79 taken on the right arm, while lying. HR: 62. RR: 19. O2 saturation: 95% on room air. Temp: deferred. Pain level now: 07/05. --19:59 Caro Gonzalez R.N. ( Patient hooked back up to IV meds and monitor (cardiac, pulse ox, BP) upon return from CT.). --20:02 Caro Gonzalez R.N. 19:34. ( ED PA notified about change in BP. No orders given.). --20:08 Caro Gonzalez R.N. <<STRICKEN ENTRY-- 20:18 08/19/2016 IV Fluids IV NS Discontinued: bag #1 completed. Total amount infused: 1000 mL. IV patency established. IV site checked: no pain, redness, or swelling. IV flushed thoroughly. --20:23 Caro Gonzalez R.N. --END STRIKE>> Change to Details. --20:26 Caro Gonzalez R.N. <<STRICKEN ENTRY-- 20:24 08/19/2016 Started bag #1 1000 mL IV Fluids IV NS (Saline); at 150 mL/hr over 6 hour(s) via site #1 via IV pump. Allergies verified and confirmed 5 rights. IV patency established. IV site checked: no pain, redness, or swelling. IV flushed thoroughly pre- and post-medication administration. Completed per protocol. --20:24 Caro Gonzalez R.N. --END STRIKE>> Change to Details. --20:26 Caro Gonzalez R.N. 20:24 08/19/2016 IV Fluids IV NS Bag Change: bag #1 completed. Total amount infused: 1000. STARTED bag #2 (1000 mL) at 150 mL/hr via IV pump. Confirmed 5 rights. IV patency established. IV site checked: no pain, redness, or swelling. IV flushed thoroughly. --20:27 Caro Gonzalez R.N. 21:16 08/19/2016 PHENERGAN (Promethazine HCl) IVP 12.5 mg given over 2 minute(s) via site #1. Allergies verified and confirmed 5 rights. IV patency established. IV site checked: no pain, redness, or swelling. IV flushed thoroughly pre- and post-medication administration. IVP given by RN. --21:16 Caro Gonzalez R.N. 21:20 08/19/2016 Zofran (Ondansetron HCl) IVP 8 mg given over 4 minute(s) via site #1. Allergies verified and confirmed 5 rights. IV patency established. IV site checked: no pain, redness, or swelling. IV flushed thoroughly pre- and post-medication administration. IVP given by RN. --21:20 Caro Gonzalez R.N. 21:15 08/19/16. BP: 174/79 taken on the left arm, while lying. HR: 60. RR: 19. O2 saturation: 88% on room air. Temp: deferred. FLACC pain scale: 0/10. --21:21 Caro Gonzalez R.N. Oxygen administered by nasal cannula at 2 liters. --21:21 Caro Gonzalez R.N. ( Oxygen 98% after applying 2L nasal canula. patient sleeping.). --21:22 Caro Gonzalez R.N. 21:45 08/19/2016 KCL IVPB Discontinued: bag #1 infused. Total amount infused: 100 mL. IV patency established. IV site checked: no pain, redness, or swelling. IV flushed thoroughly. --22:06 Caro Gonzalez R.N. 22:09 08/19/16. BP: 178/92 taken on the left arm, while sitting. HR: 64. RR: 16. O2 saturation: 96% on room air. Temp: deferred. Pain level now: 07/05. --22:10 Caro Gonzalez R.N. ( Patient taken off of O2 per ED PA orders.). --22:11 Caro Gonzalez R.N. ( Patient is having a hard time staying awake. She states her drowsiness is d/t lack of sleep. She reports that she is still feeling nauseous.). --22:13 Caro Gonzalez R.N. 22:25 08/19/16. BP: 151/91 (regular adult cuff) taken on the right arm, while lying. HR: 68. RR: 13. O2 saturation: 96%. Pain level now: 4/10. --22:26 Caro Gonzalez R.N. 22:38 08/19/2016 Reglan (Metoclopramide HCl) IVP 10 mg given over 2 minute(s) via site #1. Allergies verified and confirmed 5 rights. IV patency established. IV site checked: no pain, redness, or swelling. IV flushed thoroughly pre- and post-medication administration. IVP given by RN. --22:38 Caro Gonzalez R.N. 22:41 08/19/2016 IV Fluids IV NS Discontinued: bag #2 discontinued upon discharge. Total amount infused: 600 mL. IV patency established. IV site checked: no pain, redness, or swelling. IV flushed thoroughly. --22:46 Caro Gonzalez R.N. DISPOSITION / DISCHARGE 22:48 08/19/16. BP: 173/75 (regular adult cuff) taken on the left arm, while lying. HR: 72. RR: 14. O2 saturation: 96%. Temp: deferred. Pain level now: 07/05. --22:49 Caro Gonzalez R.N. 22:44 08/19/2016 Site #1 removed upon discharge. Manual pressure and bandaid applied. --22:49 Caro Gonzalez R.N. 22:49 08/19/2016 PHENERGAN IVP Response: no adverse reaction. 08/19/2016 22:48 BP: 173/75. HR: 72. RR: 14. O2 saturation: 96%. Pain level now: 07/05. --22:49 Caro Gonzalez R.N. 22:49 08/19/16. No learning barriers present. Discharge instructions provided and reviewed with the patient. Reviewed warnings. Reviewed medication(s). Treatments reviewed. Reviewed referrals. Activity restrictions reviewed. Patient and spouse verbalized understanding. Written instructions provided in [place]. The patient was discharged home and accompanied by spouse. She left the Emergency Department ambulatory and via private vehicle. Spouse driving. --22:49 Caro Gonzalez R.N. 22:50 08/19/2016 Zofran IVP Response: no adverse reaction. 08/19/2016 22:48 BP: 173/75. HR: 72. RR: 14. O2 saturation: 96%. Pain level now: 07/05. --22:50 Caro Gonzalez R.N. 22:50 08/19/2016 Reglan IVP Response: no adverse reaction. 08/19/2016 22:48 BP: 173/75. HR: 72. RR: 14. O2 saturation: 96%. Pain level now: 07/05. --22:50 Caro Gonzalez R.N. Departure time: 22:50. --22:51 Caro Gonzalez R.N. Locked/Released at 08/20/2016 1:15 by Caro Gonzalez R.N.
--- NOTE | 2016-08-19 22:42 | ED ORDER SUMMARY ---
..... Patient: RORY GARCÍA OrderSheet [facility] VisitID: [id number] [place] [address] 50y, F Registration Date/Time: 08/19/2016 ORDER SHEET Weight: 61.2 kg (stated) Allergies: Amoxicillin, Latex, Sulfa Antibiotics, Vicodin GENERAL ORDERS: CBC w Diff Urgent (18:27 08/19/2016 EKoroleva P.A.-C) (Ack 18:29 KHoerner) (18:44 MCook R.N.) CMP Urgent (18:27 08/19/2016 EKoroleva P.A.-C) (Ack 18:29 KHoerner) (18:44 MCook R.N.) UA-Culture if indicated Urgent (18:27 08/19/2016 EKoroleva P.A.-C) (Ack 18:29 KHoerner) (18:44 MCook R.N.) Lipase Urgent (18:27 08/19/2016 EKoroleva P.A.-C) (Ack 18:29 KHoerner) (18:44 MCook R.N.) EKG - ER Stat (18:36 08/19/2016 EKoroleva P.A.-C) (18:44 MCook R.N.) Troponin-I Urgent (18:36 08/19/2016 EKoroleva P.A.-C) (Ack 18:38 KHoerner) (18:44 MCook R.N.) CT Abd/Pel w Cont (No) (see lab) Urgent (19:28 08/19/2016 EKoroleva P.A.-C) (Ack 19:31 AMcQuoid ER Tech1) (19:55 MCampbell) Vitals (20:43 08/19/2016 EKoroleva P.A.-C) (21:03 RMarsden R.N.) Vitals (R. arm bp) (22:17 08/19/2016 EKoroleva P.A.-C) (22:26 RMarsden R.N.) MEDICATION ORDERS: Phenergan IV 12.5 mg (HIGH ALERT MEDICATION, NOW) (18:40 08/19/2016 EKoroleva P.A.-C) (18:51 MCook R.N.) Phenergan IV 12.5 mg (HIGH ALERT MEDICATION) (20:56 08/19/2016 EKoroleva P.A.-C) (Ack 21:03 RMarsden R.N.) (21:16 RMarsden R.N.) IV FLUIDS: IV NS : initial bolus 1000 mL (1000 mL/hr), then 1000 mL/hr for X1 (NOW); Kieran (18:27 08/19/2016 EKoroleva P.A.-C) (18:45 MCook R.N.) Reglan IV 10 mg (NOW) (18:27 08/19/2016 EKoroleva P.A.-C) (18:45 MCook R.N.) Protonix IVP 40mg 40 mg (Mix in NS 10ml over 2min) (18:36 08/19/2016 EKoroleva P.A.-C) (18:48 MCook R.N.) KCl IV 20 meq/100mL (Run no faster than 10 units/hr) (19:01 08/19/2016 EKoroleva P.A.-C) (Ack 19:04 RMarsden R.N.) (19:15 MCook R.N.) IV NS with Normal Saline 1 Liter: initial bolus 150 mL (1000 mL/hr), then 150 mL/hr for X1 (NOW) (20:22 08/19/2016 RMarsden R.N. per protocol) (Ack 20:23 RMarsden R.N.) (Cancelled: Other20:24 RMarsden R.N.) Zofran IV 8 mg (NOW) (20:56 08/19/2016 EKoroleva P.A.-C) (Ack 21:03 RMarsden R.N.) (21:20 RMarsden R.N.) Reglan IV 10 mg (NOW) (22:28 08/19/2016 EKoroleva P.A.-C) (Ack 22:34 RMarsden R.N.) (22:38 RMarsden R.N.) ORDER SHEET NOTES: [Electronically signed by May Forbes P.A.-C (23:13 08/19/2016)] [Electronically signed by Caro Gonzalez R.N. (:15 08/20/2016)] [Electronically locked/signed by Caro Gonzalez R.N. (:15 08/20/2016)]
--- NOTE | 2016-08-20 01:15 | ED MAR SUMMARY ---
..... Medication Administration Record Located Within [facility] [address] [place] [address] Patient: RORY GARCÍA Visit ID: [id number] 50y, F Weight: 61.2 kg Height/Length: 63 in BMI: 23.9 ALLERGIES: Amoxicillin, Latex, Sulfa Antibiotics, Vicodin Start 18:45 08/19/2016 Alex Berkowitz R.N., Stop 22:41 08/19/2016 Caro Gonzalez R.N. Medication Administered: IV NS (SALINE), Dose: IV Fluids, Bolus: 1000 mL wide open, Dispensed: 1000 mL bag, Site: #1 right AC. Medication Ordered: IV NS : initial bolus 1000 mL (1000 mL/hr), then 1000 mL/hr for X1 (NOW); Kieran. Given 18:45 08/19/2016 Alex Berkowitz R.N. Medication Administered: REGLAN [IVP] (METOCLOPRAMIDE HCL), Dose: 10 mg IVP over 2 minute(s), Site: #1 right AC. Medication Ordered: Reglan IV 10 mg (NOW). Given 18:48 08/19/2016 Alex Berkowitz R.N. Medication Administered: PROTONIX [IVP] (PANTOPRAZOLE SODIUM), Dose: 40 mg IVP over 2 minute(s), Site: #1 right AC. Medication Ordered: Protonix IVP 40mg 40 mg (Mix in NS 10ml over 2min). Given 18:51 08/19/2016 Alex Berkowitz R.N. Medication Administered: PHENERGAN [IVP] (PROMETHAZINE HCL), Dose: 12.5 mg IVP over 2 minute(s), Site: #1 right AC. Medication Ordered: Phenergan IV 12.5 mg (HIGH ALERT MEDICATION, NOW). Start 19:15 08/19/2016 Alex Berkowitz R.N., Stop 21:45 08/19/2016 Caro Gonzalez R.N. Medication Administered: KCL [IVPB] (POTASSIUM CHLORIDE), Dose: 20 meq IVPB over 2 hour(s), Rate: 50 mL/hr, Dispensed: 100 mL bag, Site: #1 right AC. Medication Ordered: KCl IV 20 meq/100mL (Run no faster than 10 units/hr). Given 21:16 08/19/2016 Caro Gonzalez R.N. Medication Administered: PHENERGAN [IVP] (PROMETHAZINE HCL), Dose: 12.5 mg IVP over 2 minute(s), Site: #1 right AC. Medication Ordered: Phenergan IV 12.5 mg (HIGH ALERT MEDICATION). Given 21:20 08/19/2016 Caro Gonzalez R.N. Medication Administered: ZOFRAN [IVP] (ONDANSETRON HCL), Dose: 8 mg IVP over 4 minute(s), Site: #1 right AC. Medication Ordered: Zofran IV 8 mg (NOW). Given 22:38 08/19/2016 Caro Gonzalez R.N. Medication Administered: REGLAN [IVP] (METOCLOPRAMIDE HCL), Dose: 10 mg IVP over 2 minute(s), Site: #1 right AC. Medication Ordered: Reglan IV 10 mg (NOW).
--- NOTE | 2016-08-20 01:15 | ED MED RECONCILIATION SUMMARY ---
Patient: RORY GARCÍA Medication Reconciliation Report [facility] VisitID: [id number] [place] [address] 50y, F Registration Date/Time: 08/19/2016 Weight: 61.2 kg Height/Length: 63 in. BMI: 23.9 ALLERGIES: Amoxicillin, Latex, Sulfa Antibiotics, Vicodin The patient's Home Medications are listed below: THE FOLLOWING MEDICATIONS NEED TO BE RECONCILED: Citalopram Hydrobromide Oral Potassium Oral Zofran Oral The source(s) of the original Home Medication information: Not obtained. The following Medications were given to the patient in the Emergency Department: IV NS IV Fluids bolus 1000 mL wide open, administered: 08/19/2016 6:45:00 PM Reglan [IVP] IVP 10 mg, administered: 08/19/2016 6:45:00 PM PROTONIX [IVP] IVP 40 mg, administered: 08/19/2016 6:48:00 PM PHENERGAN [IVP] IVP 12.5 mg, administered: 08/19/2016 6:51:00 PM KCL [IVPB] IVPB bolus 0, then 20 meq 50 mL/hr, administered: 08/19/2016 7:15:00 PM PHENERGAN [IVP] IVP 12.5 mg, administered: 08/19/2016 9:16:00 PM Zofran [IVP] IVP 8 mg, administered: 08/19/2016 9:20:00 PM Reglan [IVP] IVP 10 mg, administered: 08/19/2016 10:38:00 PM The following Medications were prescribed to the patient: Phenergan take 1 as needed for nausea or vomiting. Dispense ten (10). No refill. Substitution is permissible -- May Forbes PHaris Reglan 10 mg tablets: take 1 orally every 8 hours for 3 days as needed for nausea or vomiting. Dispense ten (10). No refills. Substitution is permissible. -- May Forbes P.A.-Du
--- NOTE | 2016-08-20 01:15 | ED DISCHARGE INSTRUCTIONS ---
Patient: RORY GARCÍA General Instructions [facility] VisitID: [id number] [place] [address] 50y, F Registration Date/Time: 08/19/2016 Vomiting. Diarrhea Acute abdominal pain of unknown cause. Hypertension. Hypokalemia Hiatal Hernia. INSTRUCTIONS Drink plenty of fluids. Drink plenty of fluids. (take your zofran as well as the Potassium). Warnings: Further evaluation is necessary. Prescription Medications: Phenergan take 1 as needed for nausea or vomiting. Dispense ten (10). No refill. Substitution is permissible Reglan 10 mg tablets: take 1 orally every 8 hours for 3 days as needed for nausea or vomiting. Dispense ten (10). No refills. Substitution is permissible. Follow-up: Follow up with your doctor in two days. ADDITIONAL INFORMATION Vomiting [6Yr-Adult] Vomiting is a common symptom that may be due to different causes. These include gastroenteritis ("stomach flu"), food poisoning and gastritis. There are other more serious causes of vomiting which may be hard to diagnose early in the illness. Therefore, it is important to watch for the warning signs listed below. The main danger from repeated vomiting is dehydration. This is due to excess loss of water and minerals from the body. When this occurs, body fluids must be replaced. Home Care: If symptoms are severe, rest at home for the next 24 hours. You may use acetaminophen (Tylenol) or ibuprofen (Motrin, Advil) to control fever, unless another medicine was prescribed. [NOTE : If you have chronic liver or kidney disease or ever had a stomach ulcer or GI bleeding, talk with your doctor before using these medicines.] (Aspirin should never be used in anyone under 18 years of age who is ill with a fever. It may cause severe liver damage.) Avoid tobacco and alcohol use, which may worsen your symptoms. If medicines for vomiting were prescribed, take as directed. Once vomiting stops, then follow these guidelines: During The First 12-24 Hours follow the diet below: FRUIT JUICES: Apple, grape juice, clear fruit drinks, and electrolyte replacement drinks. BEVERAGES: Soft drinks without caffeine; mineral water (plain or flavored), decaffeinated tea and coffee. SOUPS: Clear broth, consomm and bouillon DESSERTS: Plain gelatin, popsicles and fruit juice bars. As you feel better, you may add 6-8 ounces of yogurt per day. During The Next 24 Hours you may add the following to the above: Hot cereal, plain toast, bread, rolls, crackers Plain noodles, rice, mashed potatoes, chicken noodle or rice soup Unsweetened canned fruit (avoid pineapple), bananas Limit caffeine and chocolate. No spices or seasonings except salt. During The Next 24 Hours Gradually resume a normal diet, as you feel better and your symptoms lessen. Follow Up with your doctor as advised if you are not improving over the next 2-3 days. Get Prompt Medical Attention if any of the following occur: Constant right-sided lower abdominal pain or increasing general abdominal pain Continued vomiting (unable to keep liquids down) for 24 hours Frequent diarrhea (more than 5 times a day); blood (red or black color) or mucus in diarrhea Reduced urine output or extreme thirst Weakness, dizziness or fainting Unusually drowsy or confused Fever of 100.4F (38C) oral or higher, not better with fever medication Yellow color of the eyes or skin Diarrhea, Uncertain Cause (Adult, Report Pending) Diarrhea has several possible causes. Commonstomach fluis caused by a virus. Food poisoning, bacteria or parasites are other causes for diarrhea. Only diarrhea caused by bacteria or parasites requires treatment with an antibiotic. Diarrhea from a virus or food poisoning improves with simple home treatment. A stool sample is needed to make the diagnosis of an infection with bacteria or parasites. Up to three stool specimens may be required to diagnose This may take up to two days to get the result. It may be necessary to wait until the stool test is complete to make the diagnosis and select the best antibiotic to prescribe. Home Care: If symptoms are severe, rest at home for the next 24 hours or until you are feeling better. You may use acetaminophen (Tylenol) or ibuprofen (Motrin, Advil) to control fever, unless another medicine was prescribed. [NOTE: If you have chronic liver or kidney disease or ever had a stomach ulcer or GI bleeding, talk with your doctor before using these medicines.] (Aspirin should never be used in anyone under 18 years of age who is ill with a fever. It may cause severe liver damage.) Avoid tobacco, caffeine and alcohol, which may worsen your symptoms. If anti-diarrhea medicine was prescribed, take this only as directed. Sometimes anti-diarrhea medicine can make your condition worse if the cause is an infectious diarrhea. Therefore, anti-diarrhea medicine should not be taken for this condition unless advised by your doctor. During The First 12-24 Hours follow the diet below: BEVERAGES: Sport drinks like Gatorade, soft drinks without caffeine; nai layton, mineral water (plain or flavored), decaffeinated tea and coffee. SOUPS: Clear broth, consomm and bouillon DESSERTS: Plain gelatin (Jell-O), popsicles and fruit juice bars. During The Next 24 Hours you may add the following to the above: Hot cereal, plain toast, bread, rolls, crackers Plain noodles, rice, mashed potatoes, chicken noodle or rice soup Unsweetened canned fruit (avoid pineapple), bananas Limit fat intake to less than 15 grams per day by avoiding margarine, butter, oils, mayonnaise, sauces, gravies, fried foods, peanut butter, meat, poultry and fish. Limit fiber; avoid raw or cooked vegetables, fresh fruits (except bananas) and bran cereals. Limit caffeine and chocolate. No spices or seasonings except salt. During The Next 24 Hours Gradually resume a normal diet, as you feel better and your symptoms lessen. Follow Up with your doctor or as advised if you are not improving over the next two days. If you were asked to bring a specimen from home, bring the sample on the day of collection. You may call in 2 days (or as directed) for the results. Get Prompt Medical Attention if any of the following occur: Increasing abdominal pain or constant lower right abdominal pain Continued vomiting (unable to keep liquids down) Frequent diarrhea (more than 5 times a day) Blood in vomit or stool (black or red color) Reduced oral intake Dark urine, reduced urine output Weakness, dizziness, fainting Drowsiness, confusion, stiff neck or seizure Fever of 100.4F (38C) oral or higher, not better with fever medication New rash Abdominal Pain, Unknown Cause (Female) The exact cause of your abdominal (stomach) pain is not certain. This does not mean that this is something to worry about, or the right tests were not done. Everyone likes to know the exact cause of the problem, but sometimes with abdominal pain, there is no clear-cut cause, and this could be a good thing. The good news is that your symptoms can be treated, and you will feel better. Your condition does not seem serious now; however, sometimes the signs of a serious problem may take more time to appear. For this reason,it is important for you to watch for any new symptoms, problems,or worsening of your condition. Over the next few days, the abdominal pain may come and go, or be continuous. Other common symptoms can include nausea and vomiting. Sometimes it can be difficult to tell if you feel nauseous, you may just feel bad and not associate that feeling with nausea. Constipation, diarrhea, and a fever may go along with the pain. The pain may continue even if treated correctly over the following days. Depending on how things go, sometimes the cause can become clear and may require further or different treatment. Additional evaluations, medications, or tests may be needed. Home care Your health care provider may prescribe medications for pain, symptoms, or an infection. Follow the health care provider's instructions for taking these medications. General care Rest until your next exam. No strenuous activities. Try to find positions that ease discomfort. A small pillow placed on the abdomen may help relieve pain. Something warm on your abdomen (such as a heating pad) may help, but be careful not to burn yourself. Diet Do not force yourself to eat, especially if having cramps, vomiting, or diarrhea. Water is important so you do not get dehydrated. Soup may also be good. Sports drinks may also help, especially if they are not too acidic. Make sure you don't drink sugary drinks as this can make things worse. Take liquids in small amounts. Do not guzzle them. Caffeine sometimes makes the pain and cramping worse. Avoid dairy products if you have vomiting or diarrhea. Don't eat large amounts at a time. Wait a few minutes between bites. Eat a diet low in fiber (called a low-residue diet). Foods allowed include refined breads, white rice, fruit and vegetable juices without pulp, tender meats. These foods will pass more easily through the intestine. Avoid whole-grain foods, whole fruits and vegetables, meats, seeds and nuts, fried or fatty foods, dairy, alcohol and spicy foods until your symptoms go away. Follow-up care Follow up with your health care provider as instructed, or if your pain does not begin to improve in the next 24 hours. When to seek medical care Seek prompt medical care if any of the following occur: Pain gets worse or moves to the right lower abdomen New or worsening vomiting or diarrhea Swelling of the abdomen Unable to pass stool for more than three days Fever of 100.4F (38C) or higher, or as directed by your healthcare provider. Blood in vomit or bowel movements (dark red or black color) Jaundice (yellow color of eyes and skin) Weakness, dizziness Chest, arm, back, neck or jaw pain Unexpected vaginal bleeding or missed period Call 911 Call emergency services if any of the following occur: Trouble breathing Confusion Fainting or loss of consciousness Rapid heart rate Seizure Symptoms With Uncertain Cause [Adult] Based on the exam and any tests that were performed today, the exact cause of your symptoms is not certain. While your condition does not seem serious, the signs of a serious problem may take more time to appear. Therefore, it is important for you to watch for any new symptoms or worsening of your condition.Follow up with your doctor or this facility, as directed.A repeat physical exam or additional testing at a later time may uncover a cause for your symptoms that is not evident today. Home Care: Resume your usual activities and diet when this feels comfortable to do so. Follow Up with your doctor, or as advised by our staff.Contact your doctor sooner if your symptoms do not begin to improve in the next few days. [NOTE: If you had an x-ray, CT scan, ultrasound, or ECG (electrocardiogram), it will be reviewed by a specialist. You will be notified of any new findings that may affect your care.] Get Prompt Medical Attention if any of the following occur: Current symptoms get worse New symptoms appear Hypokalemia Hypokalemia means a low level of potassium in the blood. This most often occurs in patients who take diuretics (water pills). It can also occur due to severe vomiting or diarrhea. A mild case usually causes no symptoms. It is only found with blood testing. More severe potassium loss causes generalized weakness, muscle or abdominal cramping, heart palpitations (rapid or irregular heartbeats) and low blood pressure. Home Care: 1) Take any potassium supplements prescribed. 2) Eat foods rich in potassium. The highest amount is found in artichoke, baked potatoes, spinach, cantaloupe, honeydew melon, cod, halibut, salmon, and scallops. White, red, or selby beans are also very good sources. A modest amount is found in orange juice, bananas, carrots, and tomato juice. 3) Certain types of diuretics (water pills), such as Lasix (furosemide), require that you take potassium supplements for as long as you take the diuretic pills. If you are taking a diuretic, discuss the need for potassium supplements with your doctor. Follow Up with your doctor for a repeat blood test within the next week or as advised by our staff. Get Prompt Medical Attention if any of the following occur: -- Increased weakness -- Feeling dizzy -- Irregular heartbeat, extra beats or very fast heart rate -- Fainting spell Promethazine Hydrochloride Oral tablet What is this medicine? PROMETHAZINE (proe METH a zeen) is an antihistamine. It is used to treat allergic reactions and to treat or prevent nausea and vomiting from illness or motion sickness. It is also used to make you sleep before surgery, and to help treat pain or nausea after surgery. How should I use this medicine? Take this medicine by mouth with a glass of water. Follow the directions on the prescription label. Take your doses at regular intervals. Do not take your medicine more often than directed. Talk to your ict analyst regarding the use of this medicine in children. Special care may be needed. This medicine should not be given to infants and children younger than 2 years old. What side effects may I notice from receiving this medicine? Side effects that you should report to your doctor or health reproductive healthcare assistant as soon as possible: blurred vision irregular heartbeat, palpitations or chest pain muscle or facial twitches pain or difficulty passing urine seizures skin rash slowed or shallow breathing unusual bleeding or bruising yellowing of the eyes or skin Side effects that usually do not require medical attention (report to your doctor or health reproductive healthcare assistant if they continue or are bothersome): headache nightmares, agitation, nervousness, excitability, not able to sleep (these are more likely in children) stuffy nose What may interact with this medicine? Do not take this medicine with any of the following medications: medicines called MAO Inhibitors like Nardil, Parnate, Marplan, Eldepryl other phenothiazines like trimethobenzamide This medicine may also interact with the following medications: barbiturates like phenobarbital bromocriptine certain antidepressants certain antihistamines used in allergy or cold medicines epinephrine levodopa medicines for sleep medicines for mental problems and psychotic disturbances medicines for movement abnormalities as in Parkinson's disease, or for gastrointestinal problems muscle relaxants prescription pain medicines What if I miss a dose? If you miss a dose, take it as soon as you can. If it is almost time for your next dose, take only that dose. Do not take double or extra doses. Where should I keep my medicine? Keep out of the reach of children. Store at room temperature, between 20 and 25 degrees C (68 and 77 degrees F). Protect from light. Throw away any unused medicine after the expiration date. What should I tell my health care provider before I take this medicine? They need to know if you have any of these conditions: glaucoma high blood pressure or heart disease kidney disease liver disease lung or breathing disease, like asthma prostate trouble pain or difficulty passing urine seizures an unusual or allergic reaction to promethazine or phenothiazines, other medicines, foods, dyes, or preservatives or trying to get breast-feeding What should I watch for while using this medicine? Tell your doctor or health reproductive healthcare assistant if your symptoms do not start to get better in 1 to 2 days. You may get drowsy or dizzy. Do not drive, use machinery, or do anything that needs mental alertness until you know how this medicine affects you. To reduce the risk of dizzy or fainting spells, do not stand or sit up quickly, especially if you are an older patient. Alcohol may increase dizziness and drowsiness. Avoid alcoholic drinks. Your mouth may get dry. Chewing sugarless gum or sucking hard candy, and drinking plenty of water may help. Contact your doctor if the problem does not go away or is severe. This medicine may cause dry eyes and blurred vision. If you wear contact lenses you may feel some discomfort. Lubricating drops may help. See your eye doctor if the problem does not go away or is severe. This medicine can make you more sensitive to the sun. Keep out of the sun. If you cannot avoid being in the sun, wear protective clothing and use sunscreen. Do not use sun lamps or tanning beds/booths. If you are diabetic, check your blood-sugar levels regularly. You have been given the following additional information: Vomiting (6Y-Adult) Diarrhea, Unk Cause (Adult) Report Pendg Abdominal Pain, Unknown Cause, (Female) Symptoms With Uncertain Cause Hypokalemia Promethazine Hydrochloride Oral tablet (Electronically signed by May Forbes P.A.-C 08/19/2016 23:13)
--- NOTE | 2016-08-20 01:15 | ED MAR SUMMARY ---
..... Medication Administration Record [facility] [address] [place] [address] Patient: RORY GARCÍA Visit ID: [id number] 50y, F Weight: 61.2 kg Height/Length: 63 in BMI: 23.9 ALLERGIES: Amoxicillin, Latex, Sulfa Antibiotics, Vicodin Start 18:45 08/19/2016 Alex Berkowitz R.N., Stop 22:41 08/19/2016 Caro Gonzalez R.N. Medication Administered: IV NS (SALINE), Dose: IV Fluids, Bolus: 1000 mL wide open, Dispensed: 1000 mL bag, Site: #1 right AC. Medication Ordered: IV NS : initial bolus 1000 mL (1000 mL/hr), then 1000 mL/hr for X1 (NOW); Kieran. Given 18:45 08/19/2016 Alex Berkowitz R.N. Medication Administered: REGLAN [IVP] (METOCLOPRAMIDE HCL), Dose: 10 mg IVP over 2 minute(s), Site: #1 right AC. Medication Ordered: Reglan IV 10 mg (NOW). Given 18:48 08/19/2016 Alex Berkowitz R.N. Medication Administered: PROTONIX [IVP] (PANTOPRAZOLE SODIUM), Dose: 40 mg IVP over 2 minute(s), Site: #1 right AC. Medication Ordered: Protonix IVP 40mg 40 mg (Mix in NS 10ml over 2min). Given 18:51 08/19/2016 Alex Berkowitz R.N. Medication Administered: PHENERGAN [IVP] (PROMETHAZINE HCL), Dose: 12.5 mg IVP over 2 minute(s), Site: #1 right AC. Medication Ordered: Phenergan IV 12.5 mg (HIGH ALERT MEDICATION, NOW). Start 19:15 08/19/2016 Alex Berkowitz R.N., Stop 21:45 08/19/2016 Caro Gonzalez R.N. Medication Administered: KCL [IVPB] (POTASSIUM CHLORIDE), Dose: 20 meq IVPB over 2 hour(s), Rate: 50 mL/hr, Dispensed: 100 mL bag, Site: #1 right AC. Medication Ordered: KCl IV 20 meq/100mL (Run no faster than 10 units/hr). Given 21:16 08/19/2016 Caro Gonzalez R.N. Medication Administered: PHENERGAN [IVP] (PROMETHAZINE HCL), Dose: 12.5 mg IVP over 2 minute(s), Site: #1 right AC. Medication Ordered: Phenergan IV 12.5 mg (HIGH ALERT MEDICATION). Given 21:20 08/19/2016 Caro Gonzalez R.N. Medication Administered: ZOFRAN [IVP] (ONDANSETRON HCL), Dose: 8 mg IVP over 4 minute(s), Site: #1 right AC. Medication Ordered: Zofran IV 8 mg (NOW). Given 22:38 08/19/2016 Caro Gonzalez R.N. Medication Administered: REGLAN [IVP] (METOCLOPRAMIDE HCL), Dose: 10 mg IVP over 2 minute(s), Site: #1 right AC. Medication Ordered: Reglan IV 10 mg (NOW).
--- NOTE | 2016-08-20 01:15 | ED MED RECONCILIATION SUMMARY ---
Patient: RORY GARCÍA Medication Reconciliation Report [facility] VisitID: [id number] [place] [address] 50y, F Registration Date/Time: 08/19/2016 Weight: 61.2 kg Height/Length: 63 in. BMI: 23.9 ALLERGIES: Amoxicillin, Latex, Sulfa Antibiotics, Vicodin The patient's Home Medications are listed below: THE FOLLOWING MEDICATIONS NEED TO BE RECONCILED: Citalopram Hydrobromide Oral Potassium Oral Zofran Oral The source(s) of the original Home Medication information: Not obtained. The following Medications were given to the patient in the Emergency Department: IV NS IV Fluids bolus 1000 mL wide open, administered: 08/19/2016 6:45:00 PM Reglan [IVP] IVP 10 mg, administered: 08/19/2016 6:45:00 PM PROTONIX [IVP] IVP 40 mg, administered: 08/19/2016 6:48:00 PM PHENERGAN [IVP] IVP 12.5 mg, administered: 08/19/2016 6:51:00 PM KCL [IVPB] IVPB bolus 0, then 20 meq 50 mL/hr, administered: 08/19/2016 7:15:00 PM PHENERGAN [IVP] IVP 12.5 mg, administered: 08/19/2016 9:16:00 PM Zofran [IVP] IVP 8 mg, administered: 08/19/2016 9:20:00 PM Reglan [IVP] IVP 10 mg, administered: 08/19/2016 10:38:00 PM The following Medications were prescribed to the patient: Phenergan take 1 as needed for nausea or vomiting. Dispense ten (10). No refill. Substitution is permissible -- May Forbes PHaris Reglan 10 mg tablets: take 1 orally every 8 hours for 3 days as needed for nausea or vomiting. Dispense ten (10). No refills. Substitution is permissible. -- May Forbes P.A.-Du
== END 2016-08-19 22:50 | disposition home or self-care (01) ==
LOC: ED SRH 18:08
DX: K44.9 Diaphragmatic hernia without obstruction or gangrene (principal); E87.6 Hypokalemia; R19.7 Diarrhea, unspecified; R10.13 Epigastric pain; R11.2 Nausea with vomiting, unspecified; I10 Essential (primary) hypertension; Z79.899 Other long term (current) drug therapy; Z91.040 Latex allergy status; Z88.2 Allergy status to sulfonamides; Z88.1 Allergy status to other antibiotic agents
CPT/HCPCS: 90004; 90100; 90616; 92235; 92720; 95059